=== PATIENT | male | born 2005 | race Caucasian/White ===

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

== ENCOUNTER 2025-03-17 11:52 | Outpatient (CLI) | payer BC, OTHER, SELFPAY ==
--- NOTE | 2025-03-17 12:00 | XRR_ITS ---
PROCEDURE INFORMATION: Exam: XR Left Shoulder Exam date and time: 03/17/2025 12:06 PM Age: 19 years old Clinical indication: Injury or trauma; Sprain or strain; Left; Injuried doing handstand, pain in lt shoulder joint x few months. ; Additional info: Pain in L shoulder/injury TECHNIQUE: Imaging protocol: Radiologic exam of the left shoulder. Views: 2 or more views. COMPARISON: CR XR chest 1V portable [id number] 06/17/2022 4:52 AM FINDINGS: Bones/joints: No displaced fracture nor dislocation seen. Possible slight downward protrusion or tilting of the acromion process scapula. Correlate for impingement or other process. Soft tissues: No metallic foreign body seen. XR/XR shoulder LT min 2V* [id number] IMPRESSION: No displaced fracture seen. Correlate for impingement or other process.
== END 2025-03-17 11:53 | disposition home or self-care (01) ==
LOC: RAD 11:57
PROVIDERS: Visit Provider Nurse Practitioner Family
DX: M25.512 Pain in left shoulder (principal); S49.92XD Unspecified injury of left shoulder and upper arm, subsequent encounter; Y93.59 Activity, other involving other sports and athletics played individually; M75.42 Impingement syndrome of left shoulder
CPT/HCPCS: 73030

== ENCOUNTER 2025-04-25 11:51 | Outpatient (CLI) | payer OTHER, SELFPAY ==
--- NOTE | 2025-04-25 12:15 | MRR_ITS ---
PROCEDURE INFORMATION: Exam: MR Left Upper Extremity Joint Without Contrast; Shoulder Exam date and time: 04/25/2025 12:11 PM Age: 19 years old Clinical indication: Injury or trauma; Other: Not specified; Blunt trauma (contusions or hematomas); Shoulder; Left; Injury date: 11/2024; Injury details: Injury November, pain since; Additional info: Left shoulder pain, possible labrum tear TECHNIQUE: Imaging protocol: Magnetic resonance imaging of the left upper extremity without contrast. Exam focused on the shoulder. COMPARISON: CR XR shoulder LT min 2V* [id number] 03/17/2025 12:06 PM FINDINGS: Bones/joints: There is an obliquely oriented minimally displaced fracture at the distal tip of the clavicle, with fluid within the fracture gap. Mild healing changes. Acromioclavicular joint is mildly widened (9 mm). The acromioclavicular ligaments mildly thickened with increased signal. No distinct full-thickness tear. Moderate marrow edema in the tip of the clavicle with trace surrounding fluid. Trace AC joint effusion. Type 2 acromion. Bone marrow signal is otherwise unremarkable. Trace subcoracoid recess fluid. Nonspecific. Glenoid and humeral head cartilage are unremarkable. Glenoid labrum: Small tear of the superior labrum with mild periosteal stripping and scarring from superior to inferior. Posterior labrum is unremarkable. Supraspinatus tendon: Mild tendinosis of the supraspinatus tendon without tear. Infraspinatus tendon: Mild tendinosis of the infraspinatus tendon without tear. Subscapularis tendon: Subscapularis tendon is unremarkable. Teres minor tendon: Teres minor tendon is unremarkable. Tendon of biceps brachii: Biceps tendon is unremarkable. Coracoclavicular ligament: There is minimal edema at the clavicular insertion of the trapezoid ligament suggestive of low-grade sprain. The coracoclavicular ligaments are otherwise unremarkable. Coracoacromial ligament: The coracoacromial ligament is mildly thickened with increased signal. There is trace fluid and edema in the rotator interval. Glenohumeral ligaments: Unremarkable. Soft tissues: Unremarkable. MR/MR shoulder LT wo con* [id number] IMPRESSION: 1. There is an obliquely oriented minimally displaced fracture at the distal tip of the clavicle, with fluid within the fracture gap. Mild healing changes. 2. Acromioclavicular joint is mildly widened. Mild AC joint ligament thickening without distinct full-thickness tear. The coracoclavicular ligaments are intact. 4. Anterior labrum is torn from superior to inferior, with mild scarring. Posterior labrum is intact. 5. No rotator cuff tendon tear. Mild tendinosis of the supraspinatus and infraspinatus tendons.
== END 2025-04-25 11:52 | disposition home or self-care (01) ==
LOC: RAD 11:53
PROVIDERS: PCP Nurse Practitioner Family; Visit Provider Orthopaedic Surgery
DX: M25.512 Pain in left shoulder (principal); S42.035D Nondisplaced fracture of lateral end of left clavicle, subsequent encounter for fracture with routine healing; S43.52XD Sprain of left acromioclavicular joint, subsequent encounter; S43.432D Superior glenoid labrum lesion of left shoulder, subsequent encounter; X58.XXXD Exposure to other specified factors, subsequent encounter
CPT/HCPCS: 73221